=== PATIENT | female | born 1980 | race Caucasian/White ===

== ENCOUNTER 2024-05-24 17:59 | Emergency (ER) | payer SELFPAY ==
[2024-05-24 18:07] VITALS: BP 124/77; PULSE 73; RESP 14; TEMP 36.4; O2SAT 100; BMI 24.6
--- NOTE | 2024-05-24 18:14 | DI.RAD.S_ITS ---
PROCEDURE: XR ANKLE RT MIN 3V INDICATIONS: rolled ankle TECHNIQUE: 3 views of the ankle were acquired. COMPARISON: None. FINDINGS: Bones: No fractures or dislocations. Ankle mortise is normally aligned. No suspicious bony lesions. Soft tissues: Lateral malleolar edema. Achilles tendon appears normal. IMPRESSION: No visualized acute fracture or dislocation. However, if clinical concern and/or pain persist, short interval imaging followup in 7-10 days is recommended, as occult injury cannot be definitively excluded. Dictated by: Wen Mirza M.D. on 05/24/2024 at 19:18 Approved by: Wen Mirza M.D. on 05/24/2024 at 19:19
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
[2024-05-24] MEDS: KETOROLAC 30 MG/ML VIAL IM (19:57)
[2024-05-24 21:53] VITALS: BP 133/76; PULSE 88; RESP 18; TEMP 37.3
== END 2024-05-24 22:06 | disposition home or self-care (01) ==
PROVIDERS: Emergency Provider Emergency Medicine
DX: S96.911A Strain of unspecified muscle and tendon at ankle and foot level, right foot, initial encounter (principal); S66.912A Strain of unspecified muscle, fascia and tendon at wrist and hand level, left hand, initial encounter; W10.9XXA Fall (on) (from) unspecified stairs and steps, initial encounter; S16.1XXA Strain of muscle, fascia and tendon at neck level, initial encounter; H61.102 Unspecified noninfective disorders of pinna, left ear
CPT/HCPCS: 73110; 73610; 96372; 99283; 99284; J1885